=== PATIENT | female | born 2000 | race African-American/Black ===

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

== ENCOUNTER 2018-05-29 12:48 | Emergency (ER) | payer MEDICAID ==
[~2018-05-29] VITALS: Ht 154.9 cm; Wt 59.0 kg
[2018-05-29 12:56] VITALS: BP 121/73
== END 2018-05-29 15:13 | disposition home or self-care (01) ==
LOC: ER 12:48
DX: N39.0 Urinary tract infection, site not specified (principal); Z32.02 Encounter for pregnancy test, result negative
CPT/HCPCS: 81025

== ENCOUNTER 2018-07-24 15:23 | Emergency (ER) | payer SELFPAY ==
[~2018-07-24] VITALS: Ht 154.9 cm; Wt 48.5 kg
[2018-07-24 15:56] LABS: Eosinophils # (auto) 0 uL; Eosinophils % (auto) 0.3 % (0.0-7.0); Hemoglobin 12.8 g/dL (12.2-16.2); Neutrophils # (auto) 6.2 uL; Nucleated Red Blood Cells % 0.2 %
[2018-07-24 15:59] LABS: Basophils # (auto) 0.1 uL; Basophils % (auto) 0.6 % (0.0-2.0); Hematocrit 38.7 % (36.0-46.0); Lymphocytes % (auto) 22.6 % (10.0-50.0); Mean Corpuscular Hemoglobin 27.5 pg (28.0-32.0); Mean Corpuscular Hgb Conc. 33.1 g/dL (32.0-36.0); Mean Corpuscular Volume 83.2 fL (80.0-100.0); Monocytes # (auto) 0.5 uL; Monocytes % (auto) 5.7 % (0.0-12.0); Neutrophils % (auto) 70.8 % (37.0-80.0); Platelet Count (auto) 277 10^3/uL (140-450); Red Blood Cells 4.65 10^6/uL (4.0-5.20); White Blood Cell 8.8 10^3/uL (4.4-10.8)
[2018-07-24 16:09] LABS: Albumin 4.2 g/dL (3.4-5.0); Calcium 8.7 mg/dL (8.5-10.1); Potassium 3.6 mmol/L (3.5-5.1)
[2018-07-24 16:12] LABS: BUN/Creatinine Ratio 9.8; Bilirubin, Total 1.8 mg/dL (0.2-1.0); Total Protein 8.3 g/dL (6.4-8.2)
[2018-07-24 16:29] LABS: Urine Bacteria FEW /hpf (None Seen); Urine Blood 2+ /uL (Negative); Urine Mucus FEW (None Seen); Urine Specific Gravity 1.033 (1.001-1.035); Urine WBC 81 /hpf (0 - 5)
[2018-07-24 18:48] VITALS: BP 115/83
== END 2018-07-24 20:05 | disposition home or self-care (01) ==
LOC: ER 15:27
DX: O20.0 Threatened abortion (principal); O23.41 Unspecified infection of urinary tract in pregnancy, first trimester; Z3A.00 Weeks of gestation of pregnancy not specified
CPT/HCPCS: 36415; 76801; 76817; 80053; 81001; 81025; 84702; 85025

== ENCOUNTER 2020-01-12 17:59 | Emergency (ER) | payer MEDICAID ==
[~2020-01-12] VITALS: Ht 154.9 cm; Wt 59.0 kg
[~2020-01-12 17:59] MED LIST: PREN-96 PO
[2020-01-12 19:31] VITALS: BP 111/81
[2020-01-12 19:40] LABS: Urine Bacteria NONE SEEN /hpf (None Seen); Urine Blood Negative /uL (Negative); Urine Mucus FEW (None Seen); Urine Specific Gravity 1.012 (1.001-1.035); Urine WBC 1 /hpf (0 - 5)
[2020-01-12 19:57] LABS: Basophils # (auto) 0 10 ^3/uL (0-0.2); Basophils % (auto) 0.7 % (0.0-2.0); Eosinophils # (auto) 0 10 ^3/uL (0-0.8); Eosinophils % (auto) 0.6 % (0.0-7.0); Hematocrit 37.8 % (36.0-46.0); Hemoglobin 12.7 g/dL (12.2-16.2); Lymphocytes # (auto) 1.7 10 ^3/uL (0.4-5.4); Lymphocytes % (auto) 30.4 % (10.0-50.0); Mean Corpuscular Hemoglobin 27.2 pg (28.0-32.0); Mean Corpuscular Hgb Conc. 33.5 g/dL (32.0-36.0); Monocytes # (auto) 0.5 10 ^3/uL (0-1.3); Monocytes % (auto) 8.6 % (0.0-12.0); Neutrophils # (auto) 3.3 10 ^3/uL (1.6-8.6); Neutrophils % (auto) 59.7 % (37.0-80.0); Nucleated Red Blood Cells % 0.1 %; Platelet Count (auto) 252 10^3/uL (140-450); Red Blood Cells 4.66 10^6/uL (4.0-5.20); Red Cell Distribution Width 15.7 % (11.8-14.3); White Blood Cell 5.5 10^3/uL (4.4-10.8)
[2020-01-12 20:16] LABS: Albumin 3.7 g/dL (3.4-5.0); Calcium 8.6 mg/dL (8.5-10.1); Potassium 4.2 mmol/L (3.5-5.1)
[2020-01-12 20:20] LABS: BUN/Creatinine Ratio 10.7; Bilirubin, Total 0.4 mg/dL (0.2-1.0); Total Protein 7.9 g/dL (6.4-8.2)
== END 2020-01-12 20:42 | disposition home or self-care (01) ==
LOC: ER 17:59
DX: N39.0 Urinary tract infection, site not specified (principal); R51 Headache; Z32.02 Encounter for pregnancy test, result negative
CPT/HCPCS: 36415; 80053; 81001; 81025; 85025

== ENCOUNTER 2020-09-10 06:09 | Inpatient (IN) | payer MEDICAID ==
[~2020-09-10] VITALS: Ht 165.1 cm; Wt 68.0 kg
[~2020-09-10 06:09] MED LIST changes: +LIDOCAINE 2%HCL (LOCAL ANESTH.) INJ 20ML MDV ONE; +METHYLERGONOVINE MALEATE 0.2 MG/ML AMP IM ONE; +OXYTOCIN 10UNIT/ML 1ML VIAL ONE
[2020-09-10] MEDS ORDERED: LACT. RINGERS/OXYTOCIN 20UNITS 1,000 ML IV ONE (06:30)
[2020-09-10] MEDS ORDERED: PHISODERM TOP SOLN 240ML BTL TOP PRN (06:45)
[2020-09-10] MEDS ORDERED: LACTATED RINGER'S 1,000 ML IV SCH (06:45)
[2020-09-10] MEDS ORDERED: WITCH HAZEL-GLYCERIN PAD TOP PRN (06:45)
[2020-09-10] MEDS ORDERED: DERMOPLAST 60ML BOTTLE TOP PRN (06:45)
[2020-09-10] MEDS ORDERED: LIDOCAINE 2%HCL (LOCAL ANESTH.) INJ 20ML MDV IJ ONE (06:45)
[2020-09-10] MEDS ORDERED: PENICILLIN G POT 5MIL/D5 50ML 50 ML IV ONE (06:45)
[2020-09-10] MEDS: IBUPROFEN 600 MG TAB PO PRN (07:24)
[2020-09-10 08:39] LABS: Basophils # (auto) 0 10 ^3/uL (0-0.2); Basophils % (auto) 0.2 % (0.0-2.0); Eosinophils # (auto) 0 10 ^3/uL (0-0.8); Hemoglobin 10.7 g/dL (12.2-16.2); Platelet Count (auto) 241 10^3/uL (140-450)
[2020-09-10 08:40] LABS: Eosinophils % (auto) 0.4 % (0.0-7.0); Hematocrit 32.4 % (36.0-46.0); Lymphocytes # (auto) 2.2 10 ^3/uL (0.4-5.4); Lymphocytes % (auto) 20.6 % (10.0-50.0); Mean Corpuscular Hemoglobin 25.3 pg (28.0-32.0); Mean Corpuscular Hgb Conc. 33.1 g/dL (32.0-36.0); Mean Corpuscular Volume 76.3 fL (80.0-100.0); Monocytes # (auto) 0.8 10 ^3/uL (0-1.3); Monocytes % (auto) 7.4 % (0.0-12.0); Neutrophils # (auto) 7.7 10 ^3/uL (1.6-8.6); Neutrophils % (auto) 71.4 % (37.0-80.0); Nucleated Red Blood Cells % 0.1 %; Red Blood Cells 4.24 10^6/uL (4.0-5.20); Red Cell Distribution Width 17.9 % (11.8-14.3); White Blood Cell 10.8 10^3/uL (4.4-10.8)
[2020-09-10 08:52] LABS: Albumin 2.7 g/dL (3.4-5.0); Calcium 8.9 mg/dL (8.5-10.1)
[2020-09-10 08:57] LABS: BUN/Creatinine Ratio 10.3; Bilirubin, Total 0.5 mg/dL (0.2-1.0); INR 0.96 (0.9-1.15); Partial Thromboplastin Time 23.9 sec (23.0-31.2); Total Protein 7.1 g/dL (6.4-8.2)
[2020-09-10 09:07] LABS: Urine Bacteria NONE SEEN /hpf (None Seen); Urine Blood 2+ /uL (Negative); Urine Mucus FEW (None Seen); Urine Specific Gravity 1.019 (1.001-1.035); Urine WBC 1 /hpf (0 - 5)
--- NOTE | 2020-09-10 09:10 | NUR ---
Patient ambulated to bathroom with standby assist. Patient tolerated well. No distress noted. Educated on pericare, need to keep bladder empty to reduce the risk of bleed, massage fundus when sitting to reduce bleeding. Verbalized understanding of all information. Voided 400ml of clear urine without difficulty. Pericare performed independently. Refused sponge bath. New gown given. All bedding changed. Patient ambulated to bed without difficulty. Educated on need to call for second void. IV patent and running per order LR with pitocin. Call light in reach. Sd rails up x 2. Bed low. No distress noted.
[2020-09-10 09:11] LABS: Alcohol, Urine < 3.0 mg/dL (0-10); Amphetamine Screen, Urine NEGATIVE (NEGATIVE); Barbiturate Scree,Urine NEGATIVE (NEGATIVE); Benzodiazephine Screen, Urine NEGATIVE (NEGATIVE); Cannabinoid Screen, Urine NEGATIVE (NEGATIVE); Cocaine Screen, Urine NEGATIVE (NEGATIVE); Opiate Scree,Urine NEGATIVE (NEGATIVE); Phencyclidine Screen, Urine NEGATIVE (NEGATIVE)
[2020-09-10 11:00] VITALS: BP 106/64
--- NOTE | 2020-09-10 11:15 | NUR ---
Informed of Dr Garcia's order to transfer patient to [facility] due to mother's RPR positive test that was not treated. Educated on the risks of not treating , [facility]'s inability to treat infant for this infection, process for transfer, possible transfer time. Verbalized understanding of all information and agreed to transfer and treatment of .
--- NOTE | 2020-09-10 11:30 | NUR ---
Dr Lebron on unit. Informed of patient's records from [facility]. 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 All records shown to Dr Lebron. Informed of labs that were drawn upon admission due to no records at admission (RPR, HIV/AIDS, HEp B). Verbalized understanding. Received orders for gonorrhea and chlamydia for urine.
--- NOTE | 2020-09-10 11:45 | NUR ---
Informed patient of need for urine specimen. Verbalized understanding. Stated she already voided about 15 minutes ago, 400ml of urine. No difficulty.
[2020-09-10] MEDS ORDERED: CALCIUM CARB 500 MG CHEW TAB PO PRN (12:30)
[2020-09-10 15:00] VITALS: BP 99/54
[2020-09-10 19:00] VITALS: BP 101/54
--- NOTE | 2020-09-10 20:00 | NUR ---
Informed patient that we need a urine sample, to please leave uring in hat or use urine specimen cup to collect for us. Still no urine sample provided.
--- NOTE | 2020-09-10 20:10 | NUR ---
IV removal IV 18 G in RW, DC'd with clean sterile technique, catheter fully intact. Pressure dressing applied to site. Patient tolerated well. Pt request to take out IV, states it hurts and that she knows the consequences and wants it out now.
[2020-09-10 23:00] VITALS: BP 100/63
[2020-09-11] MEDS: IBUPROFEN 600 MG TAB PO PRN (00:20)
[2020-09-11 02:55] VITALS: BP 103/55
[2020-09-11 06:30] VITALS: BP 98/50
--- NOTE | 2020-09-11 08:20 | NUR ---
Discharge: Discharge instructions given as ordered. Pt encouraged to follow up with [facility] as instructed. All questions and concerns addressed. Patient verbalized understanding. Medication reconciliation completed and copy given to patient. All required/requested vaccines given and copies of vaccinations given to patient. Patient encouraged to prepare to depart unit.
--- NOTE | 2020-09-11 08:55 | NUR ---
Discharge: Patient ambulated to vehicle with all personal belongings, accompanied by staff and family member. No distress noted at time of departure, no adverse changes in status since initial assessment.
[2020-09-12 02:06] LABS: Rubella Antibodies, IgG 8.12 index (Immune >0.99)
== END 2020-09-11 08:55 | disposition home or self-care (01) | DRG 560 ==
LOC: LDRP 06:09 → OBSVTOIN 06:10
PROVIDERS: ADMIT Specialist; ATTEND Specialist
PROC: 10E0XZZ Delivery of Products of Conception, External Approach (ICD-10-PCS; principal; 2020-09-10)
PROC: 10907ZC Drainage of Amniotic Fluid, Therapeutic from Products of Conception, Via Natural or Artificial Opening (ICD-10-PCS; 2020-09-10)
DX: O98.12 Syphilis complicating childbirth (principal); A53.0 Latent syphilis, unspecified as early or late; Z37.0 Single live birth; Z3A.39 39 weeks gestation of pregnancy; Z20.828 Contact with and (suspected) exposure to other viral communicable diseases; Z88.1 Allergy status to other antibiotic agents
CPT/HCPCS: 36415; 59409; 80053; 80307; 81001; 81002; 85025; 85384; 85610; 85730; 86592; 86703; 86762; 86850; 86870; 86900; 86901; 87340; 87426; 94760; 96360; 96365; G0378

== ENCOUNTER 2021-01-26 19:14 | Emergency (ER) | payer MEDICAID ==
[~2021-01-26] VITALS: Ht 154.9 cm; Wt 61.2 kg
[~2021-01-26 19:14] MED LIST changes: -LIDOCAINE 2%HCL (LOCAL ANESTH.) INJ 20ML MDV ONE; -METHYLERGONOVINE MALEATE 0.2 MG/ML AMP IM ONE; -OXYTOCIN 10UNIT/ML 1ML VIAL ONE
[2021-01-26 20:20] LABS: Eosinophils # (auto) 0.1 10 ^3/uL (0-0.8); Lymphocytes # (auto) 2.9 10 ^3/uL (0.4-5.4); Neutrophils # (auto) 3.4 10 ^3/uL (1.6-8.6); White Blood Cell 7.1 10^3/uL (4.4-10.8)
[2021-01-26 20:22] LABS: Basophils # (auto) 0.1 10 ^3/uL (0-0.2); Basophils % (auto) 0.8 % (0.0-2.0); Eosinophils % (auto) 1.2 % (0.0-7.0); Hematocrit 36.1 % (36.0-46.0); Hemoglobin 11.7 g/dL (12.2-16.2); Lymphocytes % (auto) 40.2 % (10.0-50.0); Mean Corpuscular Hemoglobin 25.3 pg (28.0-32.0); Mean Corpuscular Hgb Conc. 32.6 g/dL (32.0-36.0); Mean Corpuscular Volume 77.8 fL (80.0-100.0); Monocytes # (auto) 0.7 10 ^3/uL (0-1.3); Monocytes % (auto) 9.5 % (0.0-12.0); Neutrophils % (auto) 48.3 % (37.0-80.0); Nucleated Red Blood Cells % 0.2 %; Platelet Count (auto) 302 10^3/uL (140-450); Red Blood Cells 4.63 10^6/uL (4.0-5.20)
[2021-01-26 20:42] LABS: INR 1.03 (0.9-1.15)
[2021-01-26 20:43] LABS: Albumin 3.9 g/dL (3.4-5.0); Calcium 8.6 mg/dL (8.5-10.1); Potassium 3.6 mmol/L (3.5-5.1)
[2021-01-26 20:47] LABS: BUN/Creatinine Ratio 12.4; Bilirubin, Total 0.7 mg/dL (0.2-1.0); Total Protein 7.5 g/dL (6.4-8.2)
[2021-01-26 22:34] LABS: Urine Bacteria NONE SEEN /hpf (None Seen); Urine Blood Negative /uL (Negative); Urine Mucus FEW (None Seen); Urine Specific Gravity 1.037 (1.001-1.035); Urine WBC 1 /hpf (0 - 5)
[2021-01-26] MEDS ORDERED: IOHEXOL 300 MG/ML 100ML BOTTLE IJ ONE (23:58)
[2021-01-27 02:00] VITALS: BP 111/74
== END 2021-01-27 02:13 | disposition home or self-care (01) ==
LOC: ER 19:14
DX: D32.9 Benign neoplasm of meninges, unspecified (principal); R10.31 Right lower quadrant pain; Z32.02 Encounter for pregnancy test, result negative; Z88.1 Allergy status to other antibiotic agents
CPT/HCPCS: 36415; 74177; 80053; 81001; 81025; 83690; 83735; 85025; 85610; 99285; Q9967

== ENCOUNTER 2021-09-21 15:10 | Observation (INO) | payer MEDICAID ==
[2021-09-21] MEDS ORDERED: PRED20TA2 PO (23:05)
[2021-09-21] MEDS ORDERED: NITR-87 PO (23:05)
== END 2021-09-21 17:08 | disposition home or self-care (01) ==
LOC: LDRP 15:10
PROVIDERS: ADMIT Obstetrics & Gynecology; ATTEND Obstetrics & Gynecology
DX: O26.892 Other specified pregnancy related conditions, second trimester (principal); R10.2 Pelvic and perineal pain; Z20.822 Contact with and (suspected) exposure to COVID-19; R07.89 Other chest pain; R51.9 Headache, unspecified; R06.02 Shortness of breath; R11.0 Nausea; O46.92 Antepartum hemorrhage, unspecified, second trimester; O36.8120 Decreased fetal movements, second trimester, not applicable or unspecified; Z3A.21 21 weeks gestation of pregnancy; Z87.51 Personal history of pre-term labor; Z88.0 Allergy status to penicillin
CPT/HCPCS: 36415; 59025; 81002; 87426; 94762; G0378

== ENCOUNTER 2021-09-21 17:18 | Emergency (ER) | payer MEDICAID ==
[~2021-09-21] VITALS: Ht 172.7 cm; Wt 64.0 kg
[2021-09-21 17:22] VITALS: BP 101/63
[2021-09-21 18:50] LABS: Basophils # (auto) 0 10 ^3/uL (0-0.2); Basophils % (auto) 0.3 % (0.0-2.0); Eosinophils # (auto) 0 10 ^3/uL (0-0.8); Eosinophils % (auto) 0.1 % (0.0-7.0); Hematocrit 32.5 % (36.0-46.0); Hemoglobin 11.1 g/dL (12.2-16.2); Lymphocytes # (auto) 0.9 10 ^3/uL (0.4-5.4); Lymphocytes % (auto) 28.4 % (10.0-50.0); Mean Corpuscular Hemoglobin 27.3 pg (28.0-32.0); Mean Corpuscular Hgb Conc. 34.1 g/dL (32.0-36.0); Monocytes # (auto) 0.2 10 ^3/uL (0-1.3); Monocytes % (auto) 6.4 % (0.0-12.0); Neutrophils % (auto) 64.8 % (37.0-80.0); Nucleated Red Blood Cells % 0.5 %; Red Blood Cells 4.07 10^6/uL (4.0-5.20); Red Cell Distribution Width 15.3 % (11.8-14.3); White Blood Cell 3.1 10^3/uL (4.4-10.8)
[2021-09-21 19:04] LABS: Albumin 2.6 g/dL (3.4-5.0); Calcium 7.8 mg/dL (8.5-10.1); Potassium 3.4 mmol/L (3.5-5.1)
[2021-09-21 19:15] LABS: BUN/Creatinine Ratio 8.5; Bilirubin, Total 0.6 mg/dL (0.2-1.0); Total Protein 6.9 g/dL (6.4-8.2)
[2021-09-21] MEDS ORDERED: PRED20TA2 PO (23:05)
[2021-09-21] MEDS ORDERED: NITR-87 PO (23:05)
== END 2021-09-22 02:40 | disposition home or self-care (01) ==
LOC: ER 17:18
DX: O26.892 Other specified pregnancy related conditions, second trimester (principal); J20.9 Acute bronchitis, unspecified; Z3A.22 22 weeks gestation of pregnancy
CPT/HCPCS: 36415; 80053; 84484; 85025

== ENCOUNTER 2022-06-24 09:19 | Emergency (ER) | payer OTHER, MEDICAID ==
[~2022-06-24] VITALS: Ht 154.9 cm; Wt 54.0 kg
[~2022-06-24 09:19] MED LIST changes: +NITR-87 PO; +PRED20TA2 PO
[2022-06-24] MEDS ORDERED: ASPirin 325 MG TAB PO ONE (09:45)
[2022-06-24 10:18] LABS: Basophils # (auto) 0 10 ^3/uL (0-0.2); Eosinophils # (auto) 0.1 10 ^3/uL (0-0.8); Lymphocytes # (auto) 0.7 10 ^3/uL (0.4-5.4); Mean Corpuscular Hgb Conc. 32.5 g/dL (32.0-36.0); Monocytes # (auto) 0.4 10 ^3/uL (0-1.3)
[2022-06-24 10:21] LABS: Basophils % (auto) 0.9 % (0.0-2.0); Eosinophils % (auto) 1.6 % (0.0-7.0); Hematocrit 36.7 % (36.0-46.0); Hemoglobin 11.9 g/dL (12.2-16.2); Lymphocytes % (auto) 17.2 % (10.0-50.0); Mean Corpuscular Hemoglobin 25.7 pg (28.0-32.0); Mean Corpuscular Volume 79.2 fL (80.0-100.0); Monocytes % (auto) 9.7 % (0.0-12.0); Neutrophils % (auto) 70.6 % (37.0-80.0); Red Blood Cells 4.63 10^6/uL (4.0-5.20); White Blood Cell 4.3 10^3/uL (4.4-10.8)
[2022-06-24 10:27] LABS: Albumin 3.8 g/dL (3.4-5.0); Calcium 8.8 mg/dL (8.5-10.1)
[2022-06-24 10:32] LABS: BUN/Creatinine Ratio 6.5; Bilirubin, Total 0.8 mg/dL (0.2-1.0); Total Protein 7.6 g/dL (6.4-8.2)
[2022-06-24 12:34] VITALS: BP 109/64
[2022-06-24 13:22] LABS: Urine Bacteria FEW /hpf (None Seen); Urine Blood Negative /uL (Negative); Urine Mucus FEW (None Seen); Urine WBC 11 /hpf (0 - 5)
[2022-06-24] MEDS ORDERED: NITR-87 PO (13:50)
== END 2022-06-24 18:23 | disposition home or self-care (01) ==
LOC: ER 09:19
DX: R07.89 Other chest pain (principal); N39.0 Urinary tract infection, site not specified; Z20.822 Contact with and (suspected) exposure to COVID-19; Z88.1 Allergy status to other antibiotic agents
CPT/HCPCS: 36415; 71045; 80053; 81001; 81025; 84484; 85025; 93005

== ENCOUNTER 2023-05-27 20:32 | Emergency (ER) | payer OTHER, MEDICAID ==
[~2023-05-27] VITALS: Ht 154.9 cm; Wt 145.0 kg
[2023-05-27] MEDS ORDERED: ONDANSETRON ODT 4 MG TAB PO ONE (21:15)
[2023-05-27] MEDS ORDERED: KETOROLAC TROMETH 60MG/2ML VIAL IM ONE (21:15)
[2023-05-27 21:44] LABS: Hemoglobin 12.8 g/dL (12.2-16.2)
[2023-05-27 21:46] LABS: Mean Corpuscular Hemoglobin 27.1 pg (28.0-32.0); Mean Corpuscular Hgb Conc. 33.6 g/dL (32.0-36.0); Mean Corpuscular Volume 80.7 fL (80.0-100.0); Red Blood Cells 4.71 10^6/uL (4.0-5.20); Red Cell Distribution Width 15.3 % (11.8-14.3); White Blood Cell 3.8 10^3/uL (4.4-10.8)
[2023-05-27 21:49] LABS: Band Neutrophils % (manual) 0; Basophils % (manual) 0 (0.0-2.0); Blast Cells 0; Metamyelocytes % 0; Myelocytes % 0; Promyelocytes % 0; Reactive Lymphocytes 0
[2023-05-27 21:53] LABS: Alanine Aminotransferase 23 U/L (7-40); Albumin 4.5 g/dL (3.2-4.8); Alkaline Phosphatase 82 U/L (46-116); Anion Gap 5.5 (5-15); Aspartate Aminotransferase 11 U/L (13-40); Bilirubin, Total 0.7 mg/dL (0.2-1.0); Calcium 9.2 mg/dL (8.7-10.4); Carbon Dioxide 25.5 mmol/L (20-30); Chloride 104 mmol/L (98-107); Glucose 90 mg/dL (74-106); Lipase 46 U/L (12-53); Potassium 3.7 mmol/L (3.5-5.1); Sodium 135 mmol/L (136-145); Total Protein 7.7 g/dL (5.7-8.2)
[2023-05-27 21:55] LABS: BUN/Creatinine Ratio 5.6 (10.0-20.0); Blood Urea Nitrogen < 5 mg/dL (9-23)
[2023-05-27 22:10] LABS: Urine Bacteria NONE SEEN /hpf (None Seen); Urine Blood Negative /uL (Negative); Urine Clarity Clear (Clear); Urine Color Colorless (Yellow); Urine Protein, UAD Negative (Negative); Urine Specific Gravity 1.009 (1.001-1.035); Urine Urobilinogen Normal (Negative); Urine WBC 2 /hpf (0 - 5); Urine pH 5.5 (5.0-8.0)
[2023-05-27] MEDS ORDERED: ZOFR4T PO (22:31)
[2023-05-27 22:49] LABS: Anisocytosis Slight; Eosinophils % (manual) 1 (0-7); Lymphocytes % (manual) 38 (10.0-50.0); Monocytes % (manual) 18 (0-12); Platelet Estimate Adequate
[2023-05-28 00:10] VITALS: BP 124/94; PULSE 97; RESP 18; TEMP 97.7; O2SAT 98
== END 2023-05-28 00:15 | disposition home or self-care (01) ==
LOC: ER 20:35
DX: B34.9 Viral infection, unspecified (principal); R10.2 Pelvic and perineal pain; Z88.1 Allergy status to other antibiotic agents; Z79.899 Other long term (current) drug therapy
CPT/HCPCS: 36415; 80053; 81001; 83690; 84702; 85007; 85027; 96372; 99283; J1885; Q0162

== ENCOUNTER 2024-08-09 15:45 | Observation (INO) | payer MEDICAID ==
[~2024-08-09] VITALS: Ht 154.9 cm; Wt 65.8 kg
[~2024-08-09 15:45] MED LIST changes: +ACET-1304 PO; +AZIT-185 PO; +ZOFR4T PO
[2024-08-09] MEDS ORDERED: TERBUTALINE SULFATE 1 MG/ML 1ML VIAL SC ONE (16:47)
[2024-08-09 16:48] LABS: Fern Testing Negative
[2024-08-09] MEDS: TERBUTALINE SULFATE 1 MG/ML 1ML VIAL SC SCH (16:52)
[2024-08-09] MEDS: LACTATED RINGER'S 1,000 ML IV ONE (17:11)
--- NOTE | 2024-08-09 17:22 | DVH ---
EXAM: US OB ULTRASOUND COMP GTR 14 WKS CLINICAL HISTORY: PTL COMPARISON: None TECHNIQUE: Grayscale, color-flow Doppler, and spectral Doppler ultrasound of the pelvis is performed by transabdominal technique. Findings: Single live intrauterine in vertex presentation with heart rate of 159 bpm. Cervical os appears closed and measures 3.0 cm in length. Placenta is anterior in location without evidence of previa or abruption. Limited evaluation of anatomy Estimated gestational age 29 weeks 0 days based on parameters which include biparietal diameter 7.1 cm, head circumference 25.5 cm, abdominal circumference 25.3 cm, and femur length 5.[address] ratios within normal limits. Estimated weight 1348 g (3 lbs 0 oz). Impression: 1. Single live intrauterine in vertex presentation with heart rate of 159 bpm. 2. Estimated gestational age 29 weeks 0 days with estimated date of confinement 10/25/2024.
[2024-08-09] MEDS: LACTATED RINGER'S 1,000 ML IV SCH (17:56)
[2024-08-09] MEDS ORDERED: ASPI-543 PO (18:11)
== END 2024-08-09 19:30 | disposition home or self-care (01) ==
LOC: LDRP 15:45
PROVIDERS: ADMIT Obstetrics & Gynecology; ATTEND Obstetrics & Gynecology
DX: O62.9 Abnormality of forces of labor, unspecified (principal); Z3A.28 28 weeks gestation of pregnancy; Z79.899 Other long term (current) drug therapy
CPT/HCPCS: 59025; 76805; 81002; 84112; 94760; 96360; 96361; 96372; G0378; J3105; Q0114

== ENCOUNTER 2025-03-06 23:55 | Emergency (ER) | payer MEDICAID ==
[~2025-03-06] VITALS: Ht 154.9 cm; Wt 62.7 kg
[~2025-03-06 23:55] MED LIST changes: +ASPI-543 PO
[2025-03-07] MEDS: KETOROLAC TROMETH 60MG/2ML VIAL IM ONE (01:07)
[2025-03-07 02:17] VITALS: BP 108/69; RESP 16; TEMP 97.6; O2SAT 97
[2025-03-07] MEDS ORDERED: IBUP-1455 PO (02:36)
--- NOTE | 2025-03-07 02:37 | ED.PDOC ---
HPI Comments Patient is a otherwise healthy 25-year-old female who arrives to the ED today for evaluation of chest pain concerns and intermittent nausea that began approximately 3 hours ago and has been relatively consistent. Patient came in with her child who has had some unknown illness over the past few days. Patient states the pain is sharp and squeezing. Patient complains of as substernal and right-sided pain. Patient denies any fever or vomiting. Vital signs were stable on arrival. Chief Complaint: Chest Pain Time Seen by MD: 23:59 Primary Care Provider: UNKNOWN Reviewed Notes: Nurses Notes Allergies: Coded Allergies: Ampicillin (Verified Allergy, Unknown, 09/10/20) Home Meds Active Scripts Acetaminophen (Tylenol Extra Strength Fo) 500 Mg Tab, 500 MG PO TID, #30 TAB Prov:LUPILLO PADILLA 06/20/24 Azithromycin (ZITHROMAX TABLET) 250 Mg Tb, 250 MG PO DAILY, #6 TAB Prov:LUPILLO PADILLA 06/20/24 Ondansetron Odt 4MG Tab (ZOFRAN PO) 4 Mg Tb, 4 MG PO Q6HP PRN, #20 TAB ODT TAB-DISSOLVE IN MOUTH, THEN SWALLOW Prov:MEGAN OVALLE DO 05/27/23 Nitrofurantoin Monohydrate Mac (Macrobid) 100 Mg Cap, 100 MG PO BID for 7 Days, #14 CAP Prov:TEVIN CADENA MD 06/24/22 Prednisone (Prednisone) 20 Mg Tab, 20 MG PO DAILY for 5 Days, #5 MG Prov:JENIFER MERCEDES MD 09/21/21 Nitrofurantoin Monohydrate Mac (Macrobid) 100 Mg Cap, 100 MG PO BID for 7 Days, #14 CAP Prov:JENIFER MERCEDES MD 09/21/21 Reported Medications Aspirin (Aspir-Low) 81 Mg Tab, 81 MG PO DAILY for 30 Days, MG 08/09/24 Vit W/ Ferrous Fumara ( One Daily) Daily Tab, 1 TAB PO DAILY, #90 TAB 3 Refills 02/11/19 Information Source: Patient Mode of Arrival: Ambulatory Severity: Moderate Timing: Hours Duration: Since onset Prehospital treatment: None Location: Chest (R), Chest (L) Quality: Squeezing, Pressure Onset: At Rest Cardiac Risk Factors: None PE Risk Factors: None History of: None Past Medical History PAST MEDICAL HISTORY: Denies Surgical History: Denies all surgeries PAVER History: No Pertinent PAVER History Family History Family History: No family hx of DM, No family hx of HTN, No family hx ofKidnangie twila, Family hx of DM Social History Smoker: Non-Smoker Alcohol: Denies ETOH Use Drugs: Denies Drug Use Lives In: Home Constitutional: reports: fatigue; denies: chills, diaphoresis, fever, malaise, sweats, weakness, others EENTM: denies: blurred vision, double vision, ear bleeding, ear discharge, ear drainage, ear pain, ear ringing, eye pain, eye redness, hearing loss, mouth pain, mouth swelling, nasal discharge, nose bleeding, nose congestion, nose pain, photophobia, tearing, throat pain, throat swelling, voice changes, others Respiratory: denies: cough, hemoptysis, orthopnea, SOB at rest, shortness of breath, SOB with excertion, stridor, wheezing, others Cardiovascular: reports: chest pain; denies: dizzy spells, diaphoresis, Dyspnea on exertion, edema, irregular heart beat, left arm pain, lightheadedness, palpitations, PND, syncope, others Gastrointestinal: denies: abdomen distended, abdominal pain, blood streaked bowels, constipated, diarrhea, dysphagia, difficulty swallowing, hematemesis, melena, nausea, poor appetite, poor fluid intake, rectal bleeding, rectal pain, vomiting, others Genitourinary: denies: abnormal vagina bleeding, burning, dyspareunia, dysuria, flank pain, frequency, hematuria, incontinence, pain, , vagina discharge, urgency, others Neurological: denies: dizziness, fainting, headache, left sided numbness, left sided weakness, numbness, paresthesia, pre-existing deficit, right sided numbness, right sided weakness, seizure, speech problems, tingling, tremors, weakness, others Musculoskeletal: denies: back pain, gout, joint pain, joint swelling, muscle pain, muscle stiffness, neck pain, others Integumetry: denies: bruises, change in color, change in hair/nails, dryness, laceration, lesions, lumps, rash, wounds, others Allergic/Immunocompromised: denies: Difficulty Healing, Frequent Infections, Hives, Itching, others Hematologic/Lymphatic: denies: anemia, blood clots, easy bleeding, easy bruising, swollen glands, others Endocrine: denies: excessive hunger, excessive sweating, excessive thirst, excessive urination, flushing, intolerance to cold, intolerance to heat, unexplained weight gain, unexplained weight loss, others Psychiatric: denies: anxiety, bipolar disorder, depression, hopeless, panic disorder, schizophrenia, sleepless, suicidal, others Physical Exam General Appearance: Mild Distress (Moderate distress due to right-sided chest pain concerns. Patient does not look toxic.), Normal HEENT: Normal ENT Inspection, Pharynx Normal, TMs Normal Neck: Full Range of Motion, Non-Tender, Normal, Normal Inspection Respiratory: Lungs Clear, No Accessory Muscle Use, No Respiratory Distress, Normal Breath Sounds, Other (Unable to elicit any pain on palpation of the chest.) Cardiovascular: No Edema, No JVD, No Murmur, No Gallop, Normal Peripheral Pulses, Regular Rate/Rhythm Breast Exam: Deferred Gastrointestinal: No Organomegaly, Non Tender, No Pulsatile Mass, Normal Bowel Sounds, Soft Genitalia: Deferred Pelvic: Deferred Rectal: Deferred Extremities: No calf tenderness, Normal capillary refill, Normal inspection, Normal range of motion, Non-tender, No pedal edema Neurologic: Alert, rn ortho II-XII nml as Tested, No Motor Deficits, Normal Affect, Normal Mood, No Sensory Deficits Cerebellar Function: Normal Reflexes: Normal Skin: Dry, Normal Color, Warm Lymphatic: No Adenopathy Was a procedure done? Was a procedure done?: No CP Differential Dx Differential Diagnosis: A-fib, A-Flutter, Anxiety / Panic Attack, Atrial Dysrhythmia, AV Block 1st Degree, HI, Other (Viral illness, chest pain) X-Ray, Labs, Meds, VS Vital Signs Date Time Temp Pulse Resp B/P (MAP) Pulse Ox O2 Delivery O2 Flow Rate FiO2 03/07/25 02:17 97.6 78 16 108/69 (82) 97 97.6 03/07/25 00:43 71 03/07/25 00:26 98.3 66 16 101/69 (80) 98 98.3 Lab Test 03/07/25 00:19 Range/Units Troponin I High Sensitivity < 3 L </=34 ng/L Current Medications Medications (Trade) Dose Ordered Sig/Vincent Route Start Time Stop Time Status Last Admin Ketorolac Tromethamine (Toradol Injection) 30 mg ONCE ONCE IM 03/07/25 00:15 03/07/25 00:16 DC 03/07/25 01:07 X-Ray, Labs, Meds, VS Comment All studies performed the ED were evaluated by me personally. Laboratories studies were unremarkable for any elevation of the troponins. EKG revealed a sinus rhythm with a rate of 71. VT interval of 142 and QT interval of 371. Patient stated she did not want to stay for additional testing. Advised patient she should follow up with the primary care provider for discussions related to today's visit as well as possible cardiac referral. Time of 1ST Reevaluation: 02:35 Reevaluation 1ST: Improved Consultation: PCP, Cardiology Patient Education/Counseling: Diagnosis, Treatment Family Education/Counseling: Diagnosis, Treatment Departure 1 Departure Time of Disposition: 02:35 Impression: Primary Impression: Chest pain Disposition: 01 HOME / SELF CARE / HOMELESS Condition: Stable Additional Instructions: Advised pain medication as needed and follow up with the primary care provider for discussions related to today's visit. e-Prescriptions Ibuprofen Micronized (Ibuprofen) 800 Mg Tab 800 MG PO Q8HP PRN, #20 TAB Prov: AP LUNA PAC 03/07/25 Discharged With: Self Critical Care Note Critical Care Time?: No Stability Stability form required: No Heart Score Heart Score: Heart Score Response (Comments) Value History Slightly Suspicious 0 EKG Normal 0 Age <45 0 Risk Factors No known risk factors 0 Troponin Normal limit 0 Total 0 AP LUNA PAC Mar 07, 2025 02:37
[2025-03-07 03:11] VITALS: PULSE 77
--- NOTE | 2025-03-07 08:42 | ECG ---
[facility] Test Date: 2025-03-07 Test Time: 00:07:13 Pat Name: ELMA ALARCON Department: ED Room: Gender: F Boatwright: : 2000 Requested By: AP LUNA Order Number: [id number] Reading MD: Robert Osborne Measurements Intervals [place] Rate: 71 P: 83 [place]: 142 QRS: 72 QRSD: 78 T: 66 QT: 371 QTc: 404 Interpretive Statements Sinus rhythm Electronically Signed On 03-10-2025 20:51:24 PDT by Robert Osborne Please click the below link to view image of tracing.
== END 2025-03-07 03:10 | disposition home or self-care (01) ==
LOC: ER 03-07 00:02
DX: R07.2 Precordial pain (principal); R11.0 Nausea; Z79.82 Long term (current) use of aspirin; Z88.0 Allergy status to penicillin
CPT/HCPCS: 36415; 84484; 93005; 96372; 99284; J1885